=== PATIENT | female | born 1990 | race Caucasian/White ===

== ENCOUNTER 2017-10-14 18:40 | Emergency (ER) | payer SELFPAY ==
[~2017-10-14] VITALS: Ht 175.3 cm; Wt 80.0 kg
[2017-10-14] MEDS ORDERED: NEURONTIN600 MG PO (19:02)
[2017-10-14] MEDS ORDERED: PERCOCET 5/325M1 TAB PO (19:03)
[2017-10-14] MEDS ORDERED: MEDDOSEPAK PO (19:04)
[2017-10-14 19:07] VITALS: BP 129/83
== END 2017-10-14 19:10 | disposition home or self-care (01) | DRG 93 ==
LOC: ED 18:40
DX: G89.29 Other chronic pain (principal); M54.5 Low back pain; F17.210 Nicotine dependence, cigarettes, uncomplicated